=== PATIENT | female | born 1960 | race African-American/Black ===

== ENCOUNTER 2016-12-19 01:47 | Observation (INO) | payer OTHER ==
--- NOTE | ~2016-12-19 | CO ---
Unit #: [id number] #: [id number] Patient: CARISA HARKINS [id number] [facility]. [place], [place] [address] [id number] I MR#: [id number] NAME: CARISA HARKINS ROOM: 340 Age: 56 Sex: F Admission Date: 12/19/2016 : 1960 Attending Physician: Jania Patel M.D. Consultation Date: 12/19/2016 CONSULTATION REPORT PRIMARY CARE PHYSICIAN Not listed. REASON FOR CONSULT Neuro change. PATIENT IDENTIFICATION This is a 56-year-old, right-handed, female, evaluated in room 340 at [facility]. SOURCE OF INFORMATION Obtained from the patient as well as medical record. HISTORY OF PRESENT ILLNESS This is a 56-year-old, right-handed, female with a past medical history of TIA and CAD. She was seen by Neurology at [facility] in 09/2015 for possible TIA versus stroke and was treated with alteplase, though her MRI was unremarkable. She presents to [facility] with neurologic changes. She complains of a headache on the right side, consistent with her typical migraines with blurred vision and sensitivity to light and ongoing since Friday. She states that she has been having trouble focusing since Friday. She states, however, this morning around 1:00 a.m., she woke up and felt like she was "in a fog" and "could not move." She states that she could not talk that she was confused, but her left arm felt heavy and her left leg felt like it was asleep. She states that she began to stutter and states that she was having trouble thinking. She states that when she was finally able to compose herself enough to wake her , she was able to speak, but that she was stuttering. She states that she knows what she needs to say and can see a picture of the object in her mind, but that she cannot recall the words; however, everything she is saying is coming out appropriately. She was brought to the ER for further evaluation where she complained of the above symptoms and also felt as though she was having some chest tightness and pulling on the left side of her neck and arm. She denies any neck pain, recent illness, or injury. She does complain of associated shortness of breath and dyspnea on exertion. She does admit that she has been a little bit stressed at work. 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 She does admit that she was at a recently that her aunt , but is downplaying her stress and saying that it is not really any worse than normal. She states that she feels much better, but that she is still feeling as though she is "disconnected." She complains of ongoing blurred vision, and states that she "can't connect," and "I don't feel like myself." She does complain of continuing Unit #: [id number] #: [id number] Patient: CARISA HARKINS right posterior headache and some sensitivity to light. She states as though she is still having some word-finding difficulty. Of note, her examination is unremarkable and she does not appear to have any aphasia on exam. She had a head CT done in the ER without contrast that was normal. A CT angiogram of the head and neck also done was normal. PAST MEDICAL HISTORY 1. Admission to [facility] in 09/2015, she received alteplase. She presented within window with concerning symptoms at that time, she underwent a full workup at that time, with an unremarkable CT angiogram, unremarkable MRI. She had a BARAK out of concern for left hemispheric presentation with negative CTA. Her BARAK did not reveal any clot and had normal EF, but it did reveal moderate atheroma with fresh appearing small atheromas. For that reason, she was placed on warfarin and Lovenox by Neurology. She followed up with Dr. Mustafa and was sent back to her primary care physician. Since that time, she has been off warfarin for approximately 9 months and is maintained on Plavix. She was started on Aggrenox initially, but states that she had headaches with Aggrenox and thus she was switched to Plavix. She states that she has been tolerating Plavix and that she does not take aspirin with it. 2. Seasonal allergies. 3. Diverticulitis. 4. Prior history of TIA. 5. CAD, status post stent in [place], [place], in 2009. 6. Hypertension. 7. Hyperlipidemia. PAST SURGICAL HISTORY 1. Appendectomy. 2. Right thumb surgery. 3. Bilateral tubal ligation. 4. Total abdominal hysterectomy. 5. Small bowel resection. ALLERGIES No known drug allergies. HOME MEDICATIONS Include hydrochlorothiazide, lisinopril, Beatriz, Plavix, omeprazole, allergy shots. FAMILY HISTORY Positive for stroke and CAD. SOCIAL HISTORY The patient is , lives with her . She denies tobacco use, alcohol use, or illicit drug use. 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 REVIEW OF SYSTEMS Review of systems was done, 14-point review of systems. Pertinent positives are as discussed above, otherwise negative. PHYSICAL EXAMINATION VITAL SIGNS: Temperature 97.7, pulse 78, respirations 18, blood pressure 147/86, oxygen saturation 96%, height 5 feet 3 inches, weight 180 pounds, 82 kilos. NEUROLOGIC: The patient is awake, alert, and oriented to person, place, Unit #: [id number] #: [id number] Patient: TORIN,CARISA R and time as well as events. No right or left confusion. No finger agnosia. No aphasia, dysarthria, or apraxia. Cranial nerve exam, she demonstrates full moreira of vision. Eyes are conjugate without ptosis or nystagmus. Extraocular movements are intact. Sensation of face and scalp is intact. Strength of muscles of facial expression is intact. Hearing is intact to finger rub and conversation. Tongue is midline. Uvula is midline. Palate elevation is normal. Head turning and shoulder shrug is unremarkable. Neck is supple. Motor exam, she demonstrates normal bulk and tone. Strength is equal 5/5 in all extremities. Sensory exam intact to soft touch and pinprick sensation. No extinction identified. Gait unremarkable. Romberg deferred. Reflexes 1/4. Toes are mute. Coordination unremarkable. DIAGNOSTIC STUDIES IMAGING STUDIES: CT of the head and CT angiogram of the head and neck are as discussed above. EKG; normal sinus rhythm. LABORATORY RESULTS: Hemoglobin A1c 6.1. Cholesterol 325, triglycerides 334, LDL 221, HDL 37, B12 of 298. TSH 2.94. Troponin less than 0.03. Urinalysis unremarkable. BMP unremarkable other than a potassium of 2.9, glucose of 144, PT 10.0, INR 1.0, PTT 26.4. White blood cell count 6.4, hemoglobin 13.8, hematocrit 43.1, and platelet count 262. IMPRESSION 1. Focal left arm and left leg numbness with change in speech, resolving, still with complaints of speech difficulty, but no signs on exam, atypical presentation. 2. Chest pain, resolved. Cardiac workup pending. 3. Hypokalemia. 4. Borderline low B12. 5. Hyperlipidemia, uncontrolled, suspect concern that the patient may not be compliant with her statin as her cholesterol appears to be worse than when it was checked last year and she was started on intensive statin therapy with Lipitor. 6. History of transient ischemic attack in the past. PLAN Presentation is atypical. She continues to have complaints of symptoms, but no signs, no field cut, no diplopia, no aphasia. She complained initially to the hospitalist of facial paresthesia, but denies that currently. She had complained her also of vision changes in the right eye, but complains of bilateral blurred vision at this time. She has no signs on exam. Certainly given her risk factors and presentation, we will check an MRI of the brain to further evaluate, though her symptoms are not consistent with a left MCA or right MCA infarct given that she has aphasia presentation, though certainly more concerning for stuttering and focal left-sided symptoms in a patient who is right handed. Further recommendations pending MRI and further clinical course. We will continue the patient's home dose of Plavix. We have reviewed her prior records and if MRI does show anything, we will certainly revisit a BARAK. At this time, we will observe and await MRI. Case was discussed with Dr. Kim who agrees to the above. We will follow along with you. Unit #: [id number] #: [id number] Patient: CARISA HARKINS Dictated by... Adal WagnerPYoletteRYoletteN. for Matthew Villa/rachel TD: 12/20/2016 04:24 JOB #: [id number] CONSULTATION REPORT Page 1 of 1 X Anastacia Mckeon APRN X CONSULTATION REPORT
--- NOTE | ~2016-12-19 | ST ---
Unit #: [id number] #: [id number] Patient: CARISA HARKINS [id number] [facility]. [address] [address] [id number] I MR#: [id number] NAME: CARISA HARKINS : 1960 SEX: F STUDY DATE/TIME: 12/19/2016 UNIT: C3A PCU ROOM: [facility] STUDY DESCRIPTION: Attending Physician: Jania Patel M.D. Primary Care Physician: No Primary Care Physician CARDIOLOGY REPORT EXAM Walking Lexiscan Cardiolite stress test. FINDINGS Baseline EKG shows normal sinus rhythm with rate of 71 beats per minute with low-voltage QRS. PROCEDURE Lexiscan was injected immediately followed by Cardiolite where the patient ambulated on the treadmill for a total of 4 minutes. The patient had no complaints of chest pain, palpitations, or dizziness. EKG during Lexiscan showed a brief 1 minute segment of T-wave inversion in the inferior leads. Noted for rare premature ventricular complex. Maximum blood pressure response was 168/90 mmHg. At the end of the recovery, blood pressure 138/90 mmHg. Please correlate these results with nuclear images. Dictated by... Adal GranadoPYoletteRYoletteNYolette for Matthew Rob TD: 12/19/2016 17:08 JOB #: [id number] CARDIOLOGY REPORT Page 1 of 1 X Marcos Nance APRN CARDIOLOGY REPORT
--- NOTE | ~2016-12-19 | EKG ---
PATIENT: CARISA HARKINS UNIT #: [id number] Ventricular Rate: 73 BPM Atrial Rate: 73 BPM P-R Interval: 144 ms QRS Duration: 70 ms Q-T Interval: 424 ms QTC Calculation(Bezet): 467 ms P Bedford: 54 degrees Calculated R Bedford: 21 degrees Calculated T Bedford: 44 degrees Diagnosis Line: Normal sinus rhythm Diagnosis Line: Poor R wave progression questionable lead position Diagnosis Line: or body habitus Otherwise normal ECG Nonspecific Diagnosis Line: ST abnormality Diagnosis Line: When compared with ECG of 03-OCT-2015 01:06, Diagnosis Line: No significant change was found Diagnosis Line: Confirmed by JESSY RODRIGUEZ MD ([id number]) on 12/19/2016 Diagnosis Line: 6:07:24 PM INTERPRETING MD: MICHAEL VILLARREAL
--- NOTE | ~2016-12-19 | CR72 ---
[facility] A Service of [facility] & [facility] RADIOLOGY TEXT RESULTS PATIENT: CARISA HARKINS LOCATION: [facility] : [birth year] UNIT #: [id number] AGE: [address]: Zion Baugh MD SEX: F ORDER DR: [id number] [facility] [address] [facility]. [place], [place] [address] [id number] P MR#: [id number] Acc #: [id number] NAME: CARISA HARKINS : 1960 SEX: F STUDY DATE/TIME: 12/19/2016 2:46 UNIT: [facility] ROOM: STUDY DESCRIPTION: CR Chest Single View Portable Attending Physician: Zion Baugh M.D. Ordering Physician: Zion Baugh M.D. Primary Care Physician: Tyler De La Vega M.D. MEDICAL IMAGING REPORT This report is preliminary unless electronic signature is present EXAM Portable chest INDICATION Chest pain. Confusion. Left-sided chest tightness. FINDINGS Single portable AP view of the chest compared to 08/18/2014. Heart and mediastinal contour is normal. Lungs are clear. IMPRESSION No acute findings. Dictated by... Patrick Powell M.D. THIS IS AN ELECTRONICALLY VERIFIED REPORT Patrick Powell M.D. at 12/19/2016 4:38 AM REJI/andria TD: 12/19/2016 03:45 JOB #: [id number] MEDICAL IMAGING REPORT Page 1 of 1 COPY
--- NOTE | ~2016-12-19 | MR18 ---
[facility] A Service of [facility] RADIOLOGY TEXT RESULTS PATIENT: CARISA HARKINS LOCATION: [facility] 340-01 : [birth year] UNIT #: [id number] AGE: [address]: Jania Patel MD SEX: F ORDER DR: [id number] [facility] [address] [facility]. [place], [place] [address] [id number] I MR#: [id number] Acc #: [id number] NAME: CARISA HARKINS : 1960 SEX: F STUDY DATE/TIME: 12/19/2016 18:21 UNIT: [address] ROOM: [facility] STUDY DESCRIPTION: MR Brain Wo Contrast Attending Physician: Jania Patel M.D. Ordering Physician: Jania Patel M.D. Primary Care Physician: No Primary Care Physician MRI CENTER REPORT This report is preliminary unless electronic signature is present. EXAM MR brain, 12/19/2016. INDICATION Left-side numbness and tingling. Chest pain radiating to the left neck since this morning. Left arm and leg weakness with numbness in the hands. Prior history of stroke. No trauma. TECHNIQUE Multisequence, multiplanar imaging was performed through the brain without contrast and a high field strength magnet. COMPARISON Comparison is made with MRI from 10/03/[address] performed earlier today. FINDINGS Diffusion imaging reveals no evidence of acute or early subacute ischemia. Ventricular size and configuration remain within normal limits. There are a few punctate scattered T2 hyperintensities in the white matter. These are likely related to mild chronic small vessel ischemic disease. The major intracranial flow voids are maintained. No masses are seen. There is no evidence of hemorrhage. Craniovertebral junction is within normal limits. IMPRESSION 1. No acute findings in the brain. 2. A few punctate T2 hyperintensities in the white matter are likely the result of chronic small vessel ischemic disease. 3. The exam is not significantly changed from the prior brain MRI. Dictated by... [facility] A Service of [facility] RADIOLOGY TEXT RESULTS PATIENT: CARISA HARKINS LOCATION: [facility] 340-01 : [birth year] UNIT #: [id number] AGE: [address]: Jania Patel MD SEX: F ORDER DR: Rome Cervantes Jr., M.D. THIS IS AN ELECTRONICALLY VERIFIED REPORT Rome Cervantes Jr., M.D. at 12/19/2016 10:23 PM SAYRA/mimi TD: 12/19/2016 21:08 JOB #: [id number] MRI CENTER REPORT Page 1 of 1 COPY
--- NOTE | ~2016-12-19 | TH ---
Unit #: [id number] #: [id number] Patient: CARISA HARKINS [id number] [address] [id number] I MR#: [id number] NAME: CARISA HARKINS : 1960 SEX: F STUDY DATE/TIME: 12/19/2016 UNIT: C3A PCU ROOM: 340 STUDY DESCRIPTION: Attending Physician: Jania Patel M.D. Primary Care Physician: No Primary Care Physician CARDIOLOGY REPORT EXAM Lexiscan Cardiolite stress test, nuclear portion. PROCEDURE Using technetium 99m labeled Cardiolite, rest and stress SPECT images were obtained. Multiple SPECT images were obtained in various views including horizontal and vertical long axis and short axis views of the left ventricle. Images were obtained by gated SPECT method. The patient was administered 11.5 mCi of Cardiolite at rest. The patient was administered 31.1 mCi of Cardiolite after Lexiscan infusion was completed. On the stress images, there is normal perfusion noted. The rest images show normal perfusion. Comparing rest and stress images, there is no stress-induced ischemia noted. The left ventricular ejection fraction is calculated to be 85%. There is no focal wall motion abnormality seen. CONCLUSION 1. No stress-induced ischemia noted. 2. The left ventricular ejection fraction is calculated to be 85%. 3. There is no focal wall motion abnormality seen. 4. Normal Lexiscan Cardiolite stress test. Dictated by... Matthew Rob TD: 12/19/2016 15:20 JOB #: [id number] CARDIOLOGY REPORT Page 1 of 1 X Janina Thrasher MD <ELECTRONICALLY SIGNED> 02/15/17 1429 CARDIOLOGY REPORT
--- NOTE | ~2016-12-19 | A ---
[facility] Nutrition Therapy DATE: 12/20/16 Patient: CARISA HARKINS Physician: TRINA Address: [address] [facility] Room/Bed: [address] [place] [address], Zip: [place] [phone] Admit Date: 12/19/16 Date of : [birth year] Height: Weight: 180 82 NUTRITIONAL ASSESSMENT: REASON: CONSULT RE: DIET EDUCATION PT IS 56 Y.O. FEMALE ADMITTED FOR DIET EDUCATION (CC+HH) RD PROVIDED WRITTEN AND VERBAL CC+HH DIET EDUCATION. RD PROVIDED LIST OF FOODS TO AVOID/LIMIT AND FOODS TO EAT MORE OFTEN. RD EMPHASIZED IMPORTANCE OF MAINTAINING CONSISTENT MEAL SCHEDULE + LIMITING/AVOIDING SUGAR-SWEETENED BEVERAGES. RD ALSO ENCOURAGED TO CUT BACK ON SALT INTAKE. PT PROVIDED TYPICAL FOOD INTAKE FOR A DAY AND RD AND PT WORKED TOGETHER TO MAKE SHORT-TERM AND LONG-TERM GOALS. PT DEMONSTRATED UNDERSTANDING OF THE TOPIC. RD ANSWERED QUESTIONS APPROPRIATELY. RD TO REMAIN AVAILABLE. RECOMMENDATIONS: 1. ENCOURAGE COMPLIANCE OF CURRENT DIET ORDER- HH DIET 2. RECOMMEND TO ADD CC TO CURRENT DIET ORDER RD WILL F/U PER PROTOCOL Respectfully, RENAE MOORE MS, RD, LD Food and Nutritional Services [facility] cc: client file
--- NOTE | ~2016-12-19 | CT23 ---
[facility] A Service of [facility] & [facility] RADIOLOGY TEXT RESULTS PATIENT: CARISA HARKINS LOCATION: [facility] : 60 UNIT #: [id number] AGE: [address]: Zion Baugh MD SEX: F ORDER DR: [id number] [address] [address] [id number] E MR#: [id number] Acc #: [id number] NAME: CARISA HARKINS : 1960 SEX: F STUDY DATE/TIME: 12/19/2016 4:31 UNIT: [facility] ROOM: STUDY DESCRIPTION: CT Angio Neck Attending Physician: Zion Baugh M.D. Ordering Physician: Zion Baugh M.D. Primary Care Physician: Primary Care Physician No MEDICAL IMAGING REPORT This report is preliminary unless electronic signature is present EXAM CTA neck For results of this exam please see report of CTA head of the same date. Dictated by... Patrick Powell M.D. THIS IS AN ELECTRONICALLY VERIFIED REPORT Patrick Powell M.D. at 12/19/2016 5:44 AM REJI/andria TD: 12/19/2016 05:37 JOB #: [id number] MEDICAL IMAGING REPORT Page 1 of 1 COPY
--- NOTE | ~2016-12-19 | HP ---
Unit #: [id number] #: [id number] Patient: CARISA HARKINS [id number] [address] [place], [place] [address] [id number] I MR#: [id number] NAME: CARISA HARKINS ROOM: 41091 Age: 56 Sex: F Admission Date: 12/19/2016 : 1960 Attending Physician: Jania Patel M.D. Primary Care Physician: No Primary Care Physician HISTORY AND PHYSICAL CHIEF COMPLAINT Confusion, speech difficulty, left leg numbness, and chest pain. HISTORY OF PRESENT ILLNESS Ms. Harkins is a 56-year-old, -Guyanese female with a prior history of TIA, status post TPA in September of 2015 who presents for above. I will note I talked extensively to the patient regarding history, but she is very vague on timeframes and details. Patient last felt normal approximately 10:00 p.m. last evening. She awakened at approximately 1:00 (1) and stated that she felt like she was confused. She states she was trying to wake up her and could not the words out and noticed that she was stuttering. She felt as if she was "in a fog." She was not sure whether she was still asleep and tried to awake or if something else was going on. She states when she finally composed herself enough to wake up her , she was able to speak, but she was stuttering. The words, however, were what she was trying to say. She also, at that time, developed a sensation of chest pain located in the left upper outer quadrant of the chest that felt pulling and stinging-like and radiated down the left arm. She does endorse some shortness of breath with this and states she has been increasingly dyspneic on exertion for several months, but she cannot quantify how long it has been going on. She denies any palpitations. She denies any orthopnea. She denies any new lower extremity edema. She did feel nauseous with this onset of symptoms, but did not have any vomiting. Also, at the same time, she developed some tingling of her left leg, more so in the thigh than in the foot. She also had some tingling of the right side of her face. She also, earlier this week, had some intermittent blurry vision that she states was more in the right eye than the left and describes it more as not so much a diplopia as a film over the right eye. Given all these complaints, she presented to our ER. Patient underwent CT scan of the head without contrast, which was negative for any acute findings in addition to a CTA of the head and neck, which was also negative. A troponin has been done and is negative and blood work, with the exception of some hypokalemia, is negative. EKG is also unremarkable. However, given all these complaints, she is being placed in observation for evaluation. I will note that patient states she has been under a lot of stress at work and her aunt recently and a lot of these symptoms have come on and/or progressed since her last Friday. PAST MEDICAL HISTORY 1. Coronary artery disease, status post stenting in [place], [place] in 2009. Further details are not available. 2. Hypertension. 3. Hyperlipidemia. Unit #: [id number] #: [id number] Patient: CARISA HARKINS 4. Prior history of TIA, status post TPA in September of 2015. I will note that patient underwent BARAK during that hospitalization, which did not reveal any atheroma or clot or PFO per record review. I will note patient was discharged from this facility on Lovenox and Coumadin. She was seen and followed by Dr. Hector Mustafa who stated that she was fine. She was sent back to Dr. De La Vega and, since that time, has been taken off of Coumadin after approximately nine months and then maintained on Plavix. She had some sort of side effect from Aggrenox. 5. Seasonal allergies. 6. Prior history of diverticulitis. PAST SURGICAL HISTORY Appendectomy, right thumb surgery, bilateral tubal ligation, total abdominal hysterectomy, and recent "small bowel resection" due to diverticulitis. ALLERGIES No known drug allergies. MEDICATIONS Home medications include: 1. Hydrochlorothiazide. 2. Lisinopril. 3. Beatriz. 4. Plavix. 5. Omeprazole. 6. Allergy shots. Patient does not know the doses. FAMILY HISTORY Includes prior history of stroke in patient's father and coronary artery disease. SOCIAL HISTORY Patient lives with her . She has never smoked. She does not drink alcohol. She does admit to having a lot of stress at work. REVIEW OF SYSTEMS Denies any fever. Still complains of a filmy sensation over her right eye. No difficulty swallowing. No recent weight gain or weight loss. Chest pain, as previously noted. She denies any constipation, diarrhea, melena, hematochezia, dysuria, hematuria, and any recent falls. She does state her right facial numbness is now gone and her left leg numbness is significantly improved. She is not having any left arm numbness or weakness and states that her speech is back to normal. PHYSICAL EXAM VITAL SIGNS: Temperature 97.7, blood pressure 135/96, pulse rate 77, respiratory rate 13, and oxygen saturation is 97% on room air. GENERAL: Patient is awake and alert. She is oriented x3 and very vague with timeframes. HEENT: Pupils equally round and reactive to light bilaterally. Anicteric sclerae. No conjunctival pallor. Oropharynx with moist mucous membranes. No erythema or exudate. There is a mild amount of posterior drainage noted. NECK: Supple. No lymphadenopathy. No thyromegaly. No JVD. HEART: Regular rate and rhythm without murmur, rub, or gallop. Unit #: [id number] #: [id number] Patient: CARISA HARKINS LUNGS: Clear to auscultation bilaterally without wheeze, rhonchi, or crackles. ABDOMEN: Soft, nontender, and nondistended. Positive bowel sounds. EXTREMITIES: No cyanosis, clubbing, or edema. Pedal pulses 2/4. SKIN: Warm and moist without rash; however, I will note, on the posterior neck there are changes of acanthosis nigricans and there is a scar over the midportion of the abdomen, which is well healed. NEUROLOGIC: Cranial nerves, II-XII, are intact bilaterally. Sensation is intact in the face and in both of the arms bilaterally. Strength is 5 out of 5 in the upper extremities. Strength is also 5 out of 5 in the lower extremities. Deep tendon reflexes are normal at 2/4 in the upper and lower extremities bilaterally. On exam, patient states she has decreased sensation in the right leg and right foot compared to the left. Negative Babinski. Gait was not assessed. PSYCHIATRIC: Affect somewhat flat, but no suicidal or homicidal ideation. MUSCULOSKELETAL: There is no evidence of joint erythema or hypertrophy. Patient is tender to palpation of the left anterior outer quadrant on palpation. DIAGNOSTIC STUDIES LABORATORY: Lab work done in the emergency department reveals a negative troponin at 3:30 a.m. CBC reveals a white blood cell count of 6.4, hemoglobin 13.8, platelet count of 262,000, and MCV is low at 80. INR is normal at 1. CMP reveals a sodium of 137, potassium 2.9, chloride 101, bicarb 29, BUN 13, creatinine 0.7, and glucose of 144. LFTs are all normal, including a normal albumin of 4.1. Urinalysis is also unremarkable. IMAGING: Chest x-ray did not reveal any acute findings. CT of the head without contrast was normal. Again, CT angiogram of the head and neck were also normal. CARDIOVASCULAR: EKG reveals normal sinus rhythm without any acute ST or T wave abnormality. ASSESSMENT 1. Right facial and left leg numbness and also with right foot numbness with associated confusion and stuttering. Question whether this is TIA though, anatomically, that would be less likely versus, perhaps, stress induced versus other. 2. Atypical chest pain. 3. Hypokalemia. 4. Hyperglycemia with skin changes of insulin resistance versus diabetes. 5. Coronary artery disease status post stenting in 2009. 6. Hypertension. 7. Hyperlipidemia. 8. Microcytosis. 9. History of TIA, status post TPA. 10. Diverticulosis. 11. Gastroesophageal reflux disease. 12. Allergies. PLAN 1. Will place patient in observation under telemetry. 2. I will ask Dr. Kim to evaluate the patient given these nonspecific neurologic changes. Anatomically, this seems less Unit #: [id number] #: [id number] Patient: CARISA HARKINS consistent with stroke. I am going to hold on MRI unless Dr. Kim feels that it is necessary and we will also discuss, perhaps, continuing Plavix versus reinitiation of Coumadin after his evaluation. 3. In regards to patient's atypical chest pain, I am awaiting followup troponin. If this is negative, I will proceed with Cardiolite stress testing. I will ask Dr. Thrasher to see the patient given she performed her BARAK last year. 4. Potassium has been replaced in the emergency department. I am going to give an additional 40 mg p.o. x1 and check a magnesium level off blood in lab for completeness. 5. Aspirin daily in regards to patient's complaints of chest pain in addition to her questionable stroke complaints. I will check a hemoglobin A1c in regards to patient's hyperglycemia and address appropriately. 6. When home doses obtained, will continue home medications for hypertension, reflux, and hyperlipidemia. 7. Will check TSH off blood in lab in completeness. Will also check iron studies as well. Dictated by Jania Patel M.D. OSCAR/mariya TD: 12/19/2016 09:57 JOB #: [id number] HISTORY AND PHYSICAL Page 1 of 1 X Jania Patel MD HISTORY AND PHYSICAL
--- NOTE | ~2016-12-19 | CT71 ---
[facility] A Service of [facility] RADIOLOGY TEXT RESULTS PATIENT: CARISA HARKINS LOCATION: [facility] : 60 UNIT #: [id number] AGE: [address]: Zion Baugh MD SEX: F ORDER DR: [id number] [address] [place], [place] [address] [id number] MR#: [id number] Acc #: [id number] NAME: CARISA HARKINS : 1960 SEX: F STUDY DATE/TIME: 12/19/2016 4:25 UNIT: [facility] ROOM: STUDY DESCRIPTION: CT Head Wo Contrast Attending Physician: Zion Baugh M.D. Ordering Physician: Zion Baugh M.D. Primary Care Physician: Primary Care Physician No MEDICAL IMAGING REPORT This report is preliminary unless electronic signature is present EXAM CT head INDICATION Left-sided numbness and tingling. Headache. Dizziness. TECHNIQUE CT head without contrast. This CT exam was performed with one or more of the following radiation dose reduction techniques: automatic exposure control, adjustment of mA and/or kV according to patient size, and iterative reconstruction. COMPARISON CT head dated 10/04/2015. FINDINGS Axial noncontrast images were obtained from the skull base to the vertex. Ventricular size and configuration are normal. There is no evidence of acute infarct or hemorrhage. There are no extra-axial fluid collections. No mass lesion or mass effect is seen. There are no skull fractures. IMPRESSION Normal noncontrast head CT. Dictated by... Patrick Powell M.D. THIS IS AN ELECTRONICALLY VERIFIED REPORT Patrick Powell M.D. at 12/19/2016 5:43 AM C/andria [facility] A Service of [facility] RADIOLOGY TEXT RESULTS PATIENT: CARISA HARKINS LOCATION: [facility] : 60 UNIT #: [id number] AGE: [address]: Zion Baugh MD SEX: F ORDER DR: TD: 12/19/2016 05:06 JOB #: [id number] MEDICAL IMAGING REPORT Page 1 of 1 COPY
--- NOTE | ~2016-12-19 | CT17 ---
[facility] A Service of [facility] RADIOLOGY TEXT RESULTS PATIENT: CARISA HARKINS LOCATION: [facility] : 60 UNIT #: [id number] AGE: [address]: Zion Baugh MD SEX: F ORDER DR: [id number] [facility] [address]. [place], [place] [address] [id number] E MR#: [id number] Acc #: [id number] NAME: CARISA HARKINS : 1960 SEX: F STUDY DATE/TIME: 12/19/2016 4:31 UNIT: [facility] ROOM: STUDY DESCRIPTION: CT Angio Head Attending Physician: Zion Baugh M.D. Ordering Physician: Zion Baugh M.D. Primary Care Physician: Primary Care Physician No MEDICAL IMAGING REPORT This report is preliminary unless electronic signature is present EXAM CTA head and neck INDICATION Left-sided numbness and tingling. Headache. Dizziness. Prior cerebral infarct. TECHNIQUE CT angiography of the head and neck with IV contrast. Coronal and sagittal 3-D MIP reconstructions were performed. Curved planar reconstructions were also acquired. Volume rendered and surface-rendered reconstructions of the intracranial vasculature were acquired. This CT exam was performed with one or more of the following radiation dose reduction techniques: automatic exposure control, adjustment of mA and/or kV according to patient size, and iterative reconstruction. COMPARISON CT head dated 12/19/2016 FINDINGS CTA NECK: Evaluation for significant carotid arterial stenosis is based upon the NASCET criteria. There is a four-vessel aortic arch. The carotid arteries are widely patent. No evidence of a carotid arterial stenosis. The vertebral arteries are widely patent. CTA HEAD: The intracranial internal carotid arteries are widely patent. There is minimal atherosclerotic disease. The anterior cerebral arteries and the middle cerebral arteries are patent. The anterior communicating artery is not clearly identified. The posterior communicating arteries [facility] A Service [facility] RADIOLOGY TEXT RESULTS PATIENT: CARISA HARKINS LOCATION: [facility] : 60 UNIT #: [id number] AGE: [address]: Zion Baugh MD SEX: F ORDER DR: are patent. The vertebrobasilar artery is normal. The posterior cerebral arteries are within normal limits. No evidence of a significant vascular stenosis, thrombosis, or aneurysm. Dural veins are widely patent. IMPRESSION Negative CTA of the head and neck. Dictated by... Patrick Powell M.D. THIS IS AN ELECTRONICALLY VERIFIED REPORT Patrick Powell M.D. at 12/19/2016 5:44 AM REJI/andria TD: 12/19/2016 05:33 JOB #: [id number] MEDICAL IMAGING REPORT Page 1 of 1 COPY
--- NOTE | ~2016-12-19 | CO ---
Unit #: [id number] #: [id number] Patient: CARISA HARKINS [id number] [facility]. [address] [place], [place] [address] [id number] MR#: [id number] NAME: CARISA HARKINS ROOM: 47814 Age: Sex: F Admission Date: 12/19/2016 : 1960 Attending Physician: Jania Patel M.D. Primary Care Physician: No Primary Care Physician Consultation Date: 12/19/2016 CONSULTATION REPORT REASON FOR CONSULTATION Chest pain. HISTORY OF PRESENT ILLNESS This is a 56-year-old -[place] female with a known history of having an angioplasty and stent back in 2009 in a hospital in [place], [place]. She also has a history of recurrent TIAs and had tPA in September of last year. She had been on Coumadin for awhile but that has been changed a few months ago to Plavix. She is a nonsmoker. The patient came to the emergency room after complaints of right facial numbness with associated left leg numbness and thought she was confused and her remarked that she was stuttering. Patient also states she had some visual disturbance yesterday and also she complained of pain in the occipital region. She was concerned she was having some type of stroke but she also developed some right upper chest pain. She said it feels like it is a pushing, heavy pressure. It also radiated up to the left side of the neck. She denied any pain up into the left shoulder or down the left arm. The patient is not having nausea, vomiting or diarrhea. She denied any palpitations, no dizziness, presyncope or syncope. Denies any shortness of breath. Denies paroxysmal nocturnal dyspnea or orthopnea. No recent cough, fever or chills. The patient has not seen a manufacturing industrial engineer in some time. She believes she had a stress test a couple of years ago at [facility] but details aren't available. Cardiology has been consulted to assist with evaluation and management. PAST MEDICAL HISTORY 1. Coronary artery disease, status post PCI and stent in 2009 in [place], [place]. Details unavailable. 2. Hypertension. 3. Hyperlipidemia. 4. Recurrent transient ischemic attacks. Had tPA 09/2015, recommended Coumadin but now is on Plavix. 5. 10/15/15 - Holter monitor was negative. 6. 10/15/15 - transesophageal echocardiogram was negative for thrombus or vegetation. 7. Nonsmoker. PAST SURGICAL HISTORY 1. Status post PCI and stent in 2009 at [place], [place]. 2. Right thumb surgery. 3. Appendectomy. 4. Tubal ligation. Unit #: [id number] #: [id number] Patient: CARISA HARKINS 5. Hysterectomy. HOME MEDICATIONS They are listed but dosages and frequency are unavailable. 1. Plavix 75 mg, one tablet daily. 2. Allergy tablet. 3. Prinivil. 4. Gabapentin. 5. Hydrochlorothiazide. 6. Lipitor. 7. Aspirin. ALLERGIES No known drug allergies. SOCIAL HISTORY The patient lives with her spouse. 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 She is not very active. She does some housework but nothing very physically aggressive. She has been a lifelong nonsmoker, no alcohol or illicit drug abuse. FAMILY HISTORY No coronary artery disease in her parents or siblings but her brother did have a stroke. REVIEW OF SYSTEMS See details in HPI. PHYSICAL EXAMINATION GENERAL: On exam, Ms. Harkins is a 56-year-old -[place] female in no acute respiratory distress. She is awake, alert. She answers most questions appropriately, has occasional poor memory recall and some details in the past. VITAL SIGNS: Blood pressure is 147/86, heart rate 78, respirations 16, temperature 97.7, O2 sats 97% on room air. NECK: Trachea midline. No thyromegaly or lymphadenopathy. Normal carotid upstrokes. No jugular venous distention. HEART: S1, S2. Regular rate and rhythm. No clicks, murmurs or rubs. LUNGS: Diminished, otherwise clear. ABDOMEN: Obese, soft, nontender. EXTREMITIES: Pedal pulses are palpable. No pedal edema. DIAGNOSTIC STUDIES LABORATORY: Glucose is 144, BUN 13, creatinine 0.7, eGFR is 112.3, potassium is 2.9, chloride 101, CO2 29, calcium 9.1. Total protein 7.6, albumin 4.1, bili total 0.5, AST 26, ALT 25, alkaline phos. 86. WBC 6.4, hemoglobin 13.8, hematocrit 43.1, platelets 262. Initial cardiac enzymes - CK MB is 1.0, troponin less than 0.05. Repeat cardiac enzymes - troponin less than 0.03. Fasting lipid profile and TSH is pending. Urinalysis - 0.2 urobilinogen, otherwise unremarkable. IMAGING: Chest x-ray reveals lungs are clear. Nothing acute. CT of the head without contrast was normal. Unit #: [id number] #: [id number] Patient: CARISA HARKINS R CT angio of the head and the neck was negative. CARDIOVASCULAR: EKG shows normal sinus rhythm with ventricular rate 73 beats/minute, septal Q waves. Poor R wave progression. Slightly prolonged QT. IMPRESSION 1. Right facial/left leg numbness with associated confusion and stuttering and visual disturbances, questionable transient ischemic attack. 2. Chest pain, history of PCI and stent in 2009 in [place], [place]. Details unavailable. 3. Hypokalemia. 4. Hypertension. 5. Hyperlipidemia. 6. Previous transient ischemic attacks: Had tPA 09/2015, currently on Plavix. 7. Nonsmoker. PLAN 1. Cardiology consulted to assist with evaluation and management of the chest pain. Complaints are somewhat atypical but the patient states that she had similar symptoms before her stent in 2009 so will continue to monitor cardiac enzymes and EKG. If they remain negative, will proceed with a walking Lexiscan to further re-evaluate ischemic heart disease. 2. Will try to obtain cardiac cath and PCI report from [place], [place]. Will try to obtain recent records from [facility] where she may have had a stress test within the last couple of years. Also, a 2D echo if that is possible. 3. Replace her potassium. Will get 40 mEq x1 now. 4. Neurology has been consulted to evaluate patient's symptoms to make sure she is not having any TIAs. Her MRA of the neck and head and CT of the head is negative. 5. On exam, there are no signs or symptoms of acute congestive heart failure. 6. Further recommendations pending per Dr. Thrasher. Thank you very much for allowing us to assist in her care. Dictated by... Eneida Grissom M.D. CEC/cody TD: 12/19/2016 09:31 JOB #: [id number] Unit #: [id number] #: [id number] Patient: CARISA HARKINS Dwight CONSULTATION REPORT Page 1 of 1 X Carmella Mendenhall APRN CONSULTATION REPORT
--- NOTE | ~2016-12-19 | DS ---
Unit #: [id number] #: [id number] Patient: CARISA HARKINS [id number] [address] [id number] MR#: [id number] NAME: CARISA HRAKINS ROOM: 340 Age: 56 Sex: F Admission Date: 12/19/2016 : 1960 Discharge Date: 12/20/2016 Attending Physician: Jania Patel M.D. Primary Care Physician: No Primary Care Physician DISCHARGE SUMMARY PRINCIPAL DIAGNOSES 1. Focal left arm and leg numbness secondary to complicated migraine +/- stress induced. 2. Atypical chest pain, musculoskeletal in origin. 3. Hypokalemia. 4. Hyperlipidemia, uncontrolled. 5. Vitamin B12 deficiency. 6. History of aortic atheroma per transesophageal echocardiogram in 2015. 7. Insulin resistance with hemoglobin A1C of 6.1. 8. Hypertension. 9. Stress. CONSULTANTS 1. Dr. Kim, neurology. 2. Dr. Thrasher, cardiology. DIAGNOSTIC STUDIES CARDIOVASCULAR: Cardiolite stress test, which was negative for stress-induced ischemia. Two-dimensional echocardiogram on December 19, 2016 with grade 1 diastolic dysfunction, ejection fraction 60% to 65%. Mild tricuspid regurgitation. Normal right ventricular systolic pressure. IMAGING: MRI of the brain without contrast on December 19, 2016 with no acute findings. There is punctate T2 hyperintensities of the white matter that are a result of chronic small vessel ischemic change. CT angiogram of the head and neck on December 19, 2016, which was negative. CT of the head without contrast on December 19, 2016, which was normal. CLINICAL HISTORY AND HOSPITAL COURSE Ms. Harkins is a 56-year-old female who presented to the emergency department with multiple neurologic complaints and complaints of chest pain. Please refer to H and P for further details. Patient was placed in observation for further evaluation. In regard to the patient's neurologic complaints, Dr. Kim was consulted. Upon further record review, patient underwent a BARAK in September of 2015, which revealed a small amount of fresh atheroma, and for this reason she had been placed on Coumadin therapy. However, she had been removed from Coumadin and placed on Plavix by her primary care provider. Unit #: [id number] #: [id number] Patient: CARISA HAKRINS Patient underwent MRI of the brain, and it did not reveal any acute stroke. At this time Dr. Kim felt it was appropriate to just continue Plavix therapy. However, if patient has any recurrent TIA, the addition of aspirin or changing back to Coumadin would be appropriate. She was having more frequent significant headaches, and this may be a contributing factor to her neurologic symptoms, as well. In regard to the patient's chest pain, troponins remained negative. Dr. Thrasher was consulted, and the patient underwent Cardiolite, which was unremarkable. Her medications have been adjusted slightly, and she will be discharged on medicines as noted with followup with cardiology. Patient was found to have mild vitamin B12 deficiency, and this will be replaced orally. She will be discharged home today. DISCHARGE CONDITION Stable. DISCHARGE STATUS Discharge to home. DISCHARGE MEDICATIONS 1. Fioricet 1-2 tablets p.o. q.8 hours p.r.n. headache (#20). 2. Atenolol 25 mg p.o. daily. 3. Lipitor 40 mg at bedtime. 4. Beatriz 180 mg daily. 5. Prinivil 10 mg daily. 6. Plavix 75 mg daily. 7. Vitamin B12 - 1,000 mcg p.o. daily. DISCHARGE INSTRUCTIONS Patient was instructed to follow a heart healthy, low cholesterol and low carbohydrate diet. She can increase her activity as tolerated. FOLLOW-UP 1. Patient will follow up with Dr. De La Vega in 2 weeks or as previously scheduled. 2. Patient should follow up with Dr. Hector Mustafa of outpatient neurology for further evaluation of migraines. 3. Patient will follow up with Dr. Thrasher on Friday, March 19, at 1 p.m. 1. Dictated by... Jania Patel M.D. OSCAR/pilar TD: 12/22/2016 16:13 JOB #: [id number] Unit #: [id number] #: [id number] Patient: CARISA HARKINS DISCHARGE SUMMARY Page 1 of 1 X Jania Patel MD X DISCHARGE SUMMARY
[~2016-12-19 01:47] MED LIST: ALLEGRA ALLERG180 MG PO; ASPIRIN81 M2 PO; CIPRO; COUMADIN5 MG PO; GABAPENTIN300 M2 PO; HCTZ; HYDROCHLOROTHIA25 MG PO; LIPITOR40 MG PO; LISINOPRIL; LOVENOX80 MG/0.8 INJ; METRONIDAZOLE250 MG PO; PRINIVIL10 MG PO; VOLTAREN75 MG PO
[2016-12-19 03:29] LABS: POC - CKMB 1.1 ng/mL (0.0-7.9); POC - TROPONIN <0.05 ng/mL (<=0.05)
[2016-12-19 03:41] LABS: BASOPHIL% 0.7 % (0-2.5); EOSINOPHIL# 0.2 X10e3 (0-0.7); EOSINOPHIL% 2.6 % (0.0-7.0); HEMATOCRIT 43.1 % (35.0-45.0); HEMOGLOBIN 13.8 gm/dL (12.0-16.0); LYMPHOCYTE# 2.2 X10e3 (1.0-3.5); LYMPHOCYTE% 33.8 % (17.0-45.0); MEAN CELL VOLUME 79.9 FL (83-96); MEAN CORPUSCULAR HEMOGLOBIN 25.5 PG (28-34); MONOCYTE# 0.7 X10e3 (0-1.0); MONOCYTE% 10.2 % (3.0-12.0); NEUTROPHIL# 3.4 X10e3 (1.5-7.1); NEUTROPHIL% 52.7 % (40-75); PLATELET COUNT 262 X10e3 (140-420); RED CELL DISTRIBUTION WIDTH 15.8 % (11.0-15.5); WHITE BLOOD COUNT 6.4 X10e3 (4.0-10.5)
[2016-12-19 03:43] LABS: DIFF IND NO
[2016-12-19 03:50] LABS: PARTIAL THROMBOPLASTIN TIME 26.4 SECONDS (23.5-31.3)
[2016-12-19 03:59] LABS: URINE SOURCE CLEAN CATCH
[2016-12-19 04:03] LABS: ALBUMIN SERUM 4.1 g/dL (3.5-5.0); BILIRUBIN,TOTAL 0.5 mg/dL (0.2-2.0); BUN/CREATININE RATIO 18.57; CALCIUM SERUM 9.1 mg/dL (8.4-10.2); CREATININE SERUM 0.7 mg/dL (0.6-1.4); GLOM FILT RATE Estimated 112.3 mL/min (>60); PROTEIN TOTAL SERUM 7.6 g/dL (6.0-8.3)
[2016-12-19 04:05] LABS: URINE APPEARANCE CLEAR; URINE BILIRUBIN NEG (NEG); URINE BLOOD NEG (NEG); URINE COLOR YELLOW; URINE GLUCOSE NEG (NEG); URINE KETONE NEG (NEG); URINE LEUKOCYTE ESTERASE NEG (NEG); URINE NITRATE NEG (NEG); URINE PROTEIN NEG (NEG); URINE SPECIFIC GRAVITY 1.006 (1.003-1.035); URINE UROBILINOGEN 0.2 MG/DL (NEG)
[2016-12-19 04:07] LABS: BILIRUBIN, DIRECT 0.1 mg/dL (0.0-0.2); BILIRUBIN,INDIRECT 0.4 mg/dL (0.0-0.9); POTASSIUM 2.9 mmol/L (3.5-5.1)
[2016-12-19 04:09] LABS: CULTURE INDICATED? NO
[2016-12-19 08:35] LABS: %MB 1.8 % (0.0-4.0); MB 1.9 ng/ml
[2016-12-19 10:42] LABS: CHOLESTEROL 325 mg/dL (0-200); HDL CHOLESTEROL 37 mg/dL (35-95); IRON SERUM 46 ug/dL (28-170); LDL/HDL RATIO 6 RATIO (0-4); TOTAL IRON BINDING CAPACITY 332 ug/dL (269-535); TRANSFERRIN 237 mg/dL (192-382); TRANSFERRIN SATURATION 14 % (20-50); TRIGLYCERIDES 334 mg/dL (10-160)
[2016-12-19 10:50] LABS: LDL CHOLESTEROL 221 mg/dL (-130)
[2016-12-19] MEDS ORDERED: OMEPRAZOLE40 M1 PO (13:46)
[2016-12-19] MEDS ORDERED: PLAVIX PO (13:46)
[2016-12-20 10:28] LABS: BUN/CREATININE RATIO 21.42; CALCIUM SERUM 9.1 mg/dL (8.4-10.2); CREATININE SERUM 0.7 mg/dL (0.6-1.4); GLOM FILT RATE Estimated 112.3 mL/min (>60); POTASSIUM 3.9 mmol/L (3.5-5.1)
[2016-12-20] MEDS ORDERED: TENORMIN25 MG PO (13:53)
[2016-12-20] MEDS ORDERED: LIPITOR40 MG PO (13:54)
[2016-12-20] MEDS ORDERED: FIORICET 50-301 EACH PO (13:55)
[2016-12-20] MEDS ORDERED: B-121000 MC1 PO (13:59)
== END 2016-12-20 16:49 | disposition home or self-care (01) | DRG 103 ==
LOC: CED 01:47 → CEDOF 06:20 → CED 06:20 → CEDOF 06:30 → C3A PCU 13:14 → CEDOF 13:14 → C3A PCU 12-20 16:49
PROVIDERS: Emergency Medicine; Internal Medicine; Internal Medicine Cardiovascular Disease
DX: G43.109 Migraine with aura, not intractable, without status migrainosus (principal); R20.0 Anesthesia of skin; R07.89 Other chest pain; E87.6 Hypokalemia; E78.5 Hyperlipidemia, unspecified; E53.8 Deficiency of other specified B group vitamins; E88.81 Metabolic syndrome and other insulin resistance; I70.0 Atherosclerosis of aorta; I10 Essential (primary) hypertension; F43.9 Reaction to severe stress, unspecified; I25.10 Atherosclerotic heart disease of native coronary artery without angina pectoris; I07.1 Rheumatic tricuspid insufficiency; Z79.01 Long term (current) use of anticoagulants; Z95.5 Presence of coronary angioplasty implant and graft
CPT/HCPCS: 36415; 70450; 70496; 70498; 70551; 71010; 78452; 80048; 80061; 80076; 81003; 82550; 82553; 82607; 82947; 83036; 83540; 83550; 83735; 84132; 84443; 84484; 85025; 85610; 85730; 93005; 93017; 93306; 96372; 96374; 99285; A9500; G0378; J2785; J3420; Q9967